=== PATIENT | male | born 1975 | race Caucasian/White ===

== ENCOUNTER 2017-10-08 14:08 | Emergency (ER) | payer SELFPAY ==
--- NOTE | 2017-10-08 14:30 | EDM.PDOC ---
ED HPI GENERAL MEDICAL PROBLEM - General Chief Complaint: Eye Problems Stated Complaint: SOMETHING IN RT EYE Time Seen by Provider: 10/08/17 14:30 Source of Information: Reports: Patient - History of Present Illness INITIAL COMMENTS - FREE TEXT/NARRATIVE: HISTORY AND PHYSICAL: History of present illness: [Patient presents with a foreign body right eye He was doing some grinding on a vehicle yesterday developed form body sensation while grinding metal He does have some light sensitivity no double vision no fever nausea vomiting chills sweats ] Review of systems: As per history of present illness and below otherwise all systems reviewed and negative. Past medical history: As per history of present illness and as reviewed below otherwise noncontributory. Surgical history: As per history of present illness and as reviewed below otherwise noncontributory. Social history: No reported history of drug or alcohol abuse. Family history: As per history of present illness and as reviewed below otherwise noncontributory. Physical exam: HEENT: Atraumatic, normocephalic, pupils reactive, negative for conjunctival pallor or scleral icterus, mucous membranes moist, throat clear, neck supple, nontender, trachea midline. Right eye sclera is injected there is metallic foreign body embedded at 8 o' clock position over the iris no hyphema, left eye within normal limits Lungs: Clear to auscultation, breath sounds equal bilaterally, chest nontender. Heart: S1S2, regular, negative for clicks, rubs, or JVD. Abdomen: Soft, nondistended, nontender. Negative for masses or hepatosplenomegaly. Negative for costovertebral tenderness. Pelvis: Stable nontender. Genitourinary: Deferred. Rectal: Deferred. Extremities: Atraumatic, negative for cords or calf pain. Neurovascular unremarkable. Neuro: Awake, alert, oriented. Cranial nerves II through XII unremarkable. Cerebellum unremarkable. Motor and sensory unremarkable throughout. Exam nonfocal. Diagnostics: [Wood's lamp No foreseen required Therapeutics: [(Coleen Gent ophthalmic Tetanus status is up-to-date Patient will meet Dr. Kathleen welt stitch cleaner at [facility] 4 PM ] Impression: [ metallic foreign body right eye ] Definitive disposition and diagnosis as appropriate pending reevaluation and review of above. right eye Pain Score (Numeric/FACES): 5 - Related Data Allergies Allergy/AdvReac Type Severity Reaction Status Date / Time No Known Allergies Allergy Verified 10/10/14 21:23 Home Meds: Home Meds . [No Known Home Meds] 02/15/14 [History] Past Medical History - Infectious Disease History Infectious Disease History: Reports: Chicken Pox - Past Surgical History Neurological Surgical History: Reports: Spinal Fusion Social & Family History - Family History Family Medical History: Noncontributory - Tobacco Use Smoking Status *Q: Current Every Day Smoker Years of Tobacco use: 32 Packs/Tins Daily: 1.5 - Alcohol Use Days Per Week of Alcohol Use: 1 Number of Drinks Per Day: 2 Total Drinks Per Week: 2 - Recreational Drug Use Recreational Drug Use: No ED ROS GENERAL - Review of Systems Review Of Systems: See Below ED EXAM GENERAL W FULL EYE - Physical Exam Exam: See Below Course - Vital Signs Last Recorded V/S: Last Vital Signs Temp 97.3 F 10/08/17 14:25 Pulse 79 10/08/17 14:25 Resp 18 10/08/17 14:25 BP 129/93 H 10/08/17 14:25 Pulse Ox 97 10/08/17 14:25 - Orders/Labs/Meds Orders: Active Orders 24 hr Category Date Time Status Gentamicin [Gentak 0.3% Ophth Oint] Med 10/08/17 22:00 Active 1 gm EYERT TID Medication Orders Gentamicin Sulfate (Gentak 0.3% Ophth Oint) 1 gm EYERT TID GATITO Meds: Medications Generic Name Dose Route Start Last Admin Trade Name Freq PRN Reason Stop Dose Admin Gentamicin Sulfate 1 gm 10/08/17 22:00 Gentak 0.3% Ophth Oint EYERT TID GATITO Discontinued Medications Generic Name Dose Route Start Last Admin Trade Name Freq PRN Reason Stop Dose Admin Proparacaine HCl 1 ml 10/08/17 14:34 Proparacaine 0.5% Ophth Soln EYERT 10/08/17 14:35 NOW STA Departure - Departure Time of Disposition: 15:03 Disposition: DC/Tfer to Other 70 Condition: Good Clinical Impression: Foreign body - Discharge Information Referrals: PCP,None [Primary Care Provider] - Forms: ED Department Discharge Additional Instructions: Proceed to [facility] Dr. Kathleen will meet you at the front door at [address] [address] The following information is given to patients seen in the emergency department who are being discharged to home. This information is to outline your options for follow-up care. We provide all patients seen in our emergency department with a follow-up referral. The need for follow-up, as well as the timing and circumstances, are variable depending upon the specifics of your emergency department visit. If you don't have a primary care physician on staff, we will provide you with a referral. We always advise you to contact your personal physician following an emergency department visit to inform them of the circumstance of the visit and for follow-up with them and/or the need for any referrals to a consulting specialist. The emergency department will also refer you to a specialist when appropriate. This referral assures that you have the opportunity for follow-up care with a specialist. All of these measure are taken in an effort to provide you with optimal care, which includes your follow-up. Under all circumstances we always encourage you to contact your private physician who remains a resource for coordinating your care. When calling for follow-up care, please make the office aware that this follow-up is from your recent emergency room visit. If for any reason you are refused follow-up, please contact the [facility] emergency department at and asked to speak to the emergency department charge nurse. - My Orders Last 24 Hours: My Active Orders 10/08/17 22:00 Gentamicin [Gentak 0.3% Ophth Oint] 1 gm EYERT TID - Assessment/Plan Last 24 Hours: My Active Orders 10/08/17 22:00 Gentamicin [Gentak 0.3% Ophth Oint] 1 gm EYERT TID
[2017-10-08] MEDS ORDERED: Proparacaine 0.5% Ophth Soln 15 ML Bottle EYERT STA (14:34)
[2017-10-08] MEDS ORDERED: Gentamicin 0.3% Ophth Soln 5 ML Bottle EYERT SCH (15:30)
== END 2017-10-08 15:40 | disposition other institution (70) ==
LOC: MW.ED 14:08
DX: T15.91XA Foreign body on external eye, part unspecified, right eye, initial encounter (principal); F17.210 Nicotine dependence, cigarettes, uncomplicated
CPT/HCPCS: 99283; A9270; 99282

== ENCOUNTER 2020-02-02 13:41 | Emergency (ER) | payer OTHER, MEDICAID ==
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
[2020-02-02 14:22] LABS: BLOOD UREA NITROGEN,BUN 10 mg/dL (7.0-18.0); CARBON DIOXIDE,CO2 27.1 mmol/L (21.0-32.0); CHLORIDE,CL 105 mmol/L (98-107); GLUCOSE RANDOM 105 mg/dL (74-106); POTASSIUM,K 4.4 mmol/L (3.5-5.1); SODIUM,NA 140 mmol/L (136-148)
--- NOTE | 2020-02-02 14:33 | CR ---
Right knee: 2 views of the right knee were obtained. Comparison: Previous right tibia and fibula study performed earlier on the same day (1:47 PM). Previous dislocation has been reduced. No discrete fracture or other bony abnormality is seen. Small joint effusion is seen. Small spur is noted at the attachment of the quadriceps tendon to the patella. Impression: 1. Previous dislocation has been reduced. 2. Joint effusion. Diagnostic code #3 This report was dictated in MDT
--- NOTE | 2020-02-02 14:33 | CR ---
Right tibia and fibula: 2 views of the right tibia and fibula were obtained. Dislocated knee is seen. No discrete fracture or other bony abnormality is appreciated. Impression: 1. Dislocated knee. 2. No acute fracture is appreciated. Diagnostic code #5 This report was dictated in MDT
[2020-02-02] MEDS ORDERED: Iopamidol 755 MG/ML 500 ML Multipack Bottle IVPUSH ONE (15:43)
--- NOTE | 2020-02-02 15:52 | CT ---
Head CT Technique: Multiple axial sections through the brain were obtained. Intravenous contrast was not utilized. Comparison: No prior intracranial imaging is available. Findings: Ventricles along with basal cisterns and sulci over the convexities are within normal limits for the patient's age. No abnormal parenchymal densities are seen. No evidence of intracranial hemorrhage. No midline shift or mass-effect is appreciated. Bone window settings were reviewed. Mild mucosal thickening is seen with the left maxillary sinus and within the ethmoid and frontal sinuses. Mastoid sinuses are clear. Mild soft tissue swelling is seen within the posterior left scalp. Impression: 1. Mucosal thickening within the paranasal sinuses as described above. Findings are most likely chronic as no air-fluid levels are seen. 2. Soft tissue swelling within the posterior left scalp. 3. No acute intracranial abnormality is appreciated. Diagnostic code #2 This report was dictated in MDT
--- NOTE | 2020-02-02 15:54 | CT ---
CT cervical spine Technique: Multiple axial sections were obtained from above C1 inferiorly to the mid to lower T3 level. Reconstructed coronal and sagittal images were obtained. Findings: Slight posterior disc space narrowing at C3-4 is noted. Vertebral body heights are maintained. Calcifications are seen with anterior annulus at C3-4, C5-6 and C6-7. Slight posterior osteophytes are seen at C3-4 through C5-6. Mild degenerative apophyseal change is scattered within the cervical spine. No bony central or bony neural foraminal stenosis is seen. No acute fracture is seen. No abnormal subluxation is seen. Mild scoliosis is present. Impression: 1. Mild degenerative change and mild scoliosis. 2. Nothing acute is appreciated. Diagnostic code #2 This report was dictated in MDT
--- NOTE | 2020-02-02 15:58 | CT ---
CT right lower extremity angiogram Technique: Multiple axial sections were obtained from the mid external iliac artery inferiorly through the right foot. Study was obtained during the arterial phase of contrast administration. Multiple MIP images were obtained. Findings: Mild soft tissue swelling noted around the knee. This is compatible with previous dislocation. Distal external iliac artery is patent. Common femoral artery is patent. Superficial femoral artery and profunda artery are patent. Popliteal artery is patent. Three-vessel runoff is identified with 2 vessels opacified into the ankle. Impression: 1. Soft tissue swelling around the knee. This is compatible with change from previous dislocation. 2. No vascular abnormality is appreciated on CT angiogram of the right lower extremity. Diagnostic code #2 This report was dictated in MDT
[2020-02-02] MEDS ORDERED: Morphine 4 MG/ML Syringe IVPUSH ONE (16:31)
== END 2020-02-02 17:00 | disposition home or self-care (01) ==
LOC: MW.ED 13:43
DX: S83.104A Unspecified dislocation of right knee, initial encounter (principal); V29.9XXA Motorcycle rider (driver) (passenger) injured in unspecified traffic accident, initial encounter
CPT/HCPCS: 27550; 36415; 70450; 72125; 73560; 73590; 73706; 80053; 85025; 85610; 96374; 99291; Q9967; 29505